=== PATIENT | male | born 1985 | race Caucasian/White ===

== ENCOUNTER 2019-11-09 19:58 | Emergency (ER) | payer BC ==
--- NOTE | 2019-11-09 20:07 | EDM.PDOC ---
ED HPI GENERAL MEDICAL PROBLEM - General Chief Complaint: Back Pain or Injury Stated Complaint: BACK PAIN Time Seen by Provider: 11/09/19 20:01 Source of Information: Reports: Patient History Limitations: Reports: No Limitations - History of Present Illness INITIAL COMMENTS - FREE TEXT/NARRATIVE: HISTORY AND PHYSICAL: History of present illness: Patient is a 34-year-old male who presents to the emergency room with complaints of right-sided flank pain that radiates into his right groin. Has had some intermittent diarrhea and nausea. He does have family members who work in the medical field and are concerned he either has a kidney stone or kidney injury. Patient denies any fever, chills, headache, change in vision, syncope or near syncope. Denies any chest pain, back pain, shortness of breath or cough. Denies any current nausea, vomiting, diarrhea, constipation or dysuria. Denies any testicular pain, swelling or erythema. Patient has been eating and drinking appropriately. Review of systems: As per history of present illness and below otherwise all systems reviewed and negative. Past medical history: As per history of present illness and as reviewed below otherwise noncontributory. Surgical history: As per history of present illness and as reviewed below otherwise noncontributory. Social history: See social history for further information Family history: As per history of present illness and as reviewed below otherwise noncontributory. Physical exam: General: Well-developed and well-nourished 34-year-old male. Alert and oriented. Nontoxic-appearing and in no acute distress. HEENT: Atraumatic, normocephalic, pupils equal and reactive bilaterally, negative for conjunctival pallor or scleral icterus, mucous membranes moist, trachea midline. No drooling or trismus noted. No meningeal signs. No hot potato voice noted. Lungs: Clear to auscultation, breath sounds equal bilaterally, chest nontender. Heart: S1S2, regular rate and rhythm without overt murmur Abdomen: Soft, nondistended, mild tenderness to the right upper quadrant. Negative for masses or hepatosplenomegaly. Right-sided costovertebral tenderness. Pelvis: Stable nontender. C-spine/Back: No pinpoint vertebral tenderness upon palpation. No crepitus, step -offs or obvious deformities. Patient is ambulatory into the emergency room without difficulty or deficit. Denies any urinary or fecal incontinence. Denies any numbness, tingling or saddle paresthesia. Skin: Intact, warm, dry. No lesions or rashes noted. Extremities: Atraumatic, moves all extremities per self without difficulty or deficits, negative for cords or calf pain. Neurovascular unremarkable. Neuro: Awake, alert, oriented. Cranial nerves II through XII unremarkable. Cerebellum unremarkable. Motor and sensory unremarkable throughout. Exam nonfocal. Notes: Lab work is unremarkable with the exception of blood and RBCs and few bacteria in the urine. CT of the abdomen and pelvis was ordered. Results are pending, Dr. Ravi will follow up on imaging and disposition accordingly. Diagnostics: CBC, CMP, UA, CT abdomen and pelvis Therapeutics: IV fluid Prescription: Cipro, flomax, tramadol Impression: Hematuria Plan: 1. Increase your oral fluids. Take the medications as directed. 2. Strain your urine. Please call tomorrow to set up a follow-up appointment with Dr. Camarillo, urology. 3. Return to the ED as needed and as discussed. Definitive disposition and diagnosis as appropriate pending reevaluation and review of above. right flank Pain Score (Numeric/FACES): 8 - Related Data Allergies Allergy/AdvReac Type Severity Reaction Status Date / Time No Known Allergies Allergy Verified 11/09/19 20:08 Home Meds: Home Meds . [No Known Home Meds] 11/09/19 [History] ED ROS GENERAL - Review of Systems Review Of Systems: Comprehensive ROS is negative, except as noted in HPI. ED EXAM,LOWER BACK PAIN/INJURY - Physical Exam Exam: See Below (See dictation) Course - Vital Signs Last Recorded V/S: Last Vital Signs Temp 97 F 11/09/19 20:08 Pulse 88 11/09/19 20:08 Resp 16 11/09/19 20:08 BP 130/75 11/09/19 20:08 Pulse Ox 98 11/09/19 20:08 - Orders/Labs/Meds Labs: Laboratory Tests 11/09/19 11/09/19 11/09/19 Range/Units 20:26 20:26 20:26 WBC 9.73 (4.0-11.0) K/uL RBC 5.13 (4.50-5.90) M/uL Hgb 15.2 (13.0-17.0) g/dL Hct 45.6 (38.0-50.0) % MCV 88.9 (80.0-98.0) fL MCH 29.6 (27.0-32.0) pg MCHC 33.3 (31.0-37.0) g/dL RDW Std Deviation 43.7 (28.0-62.0) fl RDW Coeff of Kristina 13 (11.0-15.0) % Plt Count 216 (150-400) K/uL MPV 12.50 H (7.40-12.00) fL Neut % (Auto) 63.1 (48.0-80.0) % Lymph % (Auto) 28.6 (16.0-40.0) % [place] % (Auto) 6.9 (0.0-15.0) % Eos % (Auto) 1.2 (0.0-7.0) % Baso % (Auto) 0.2 (0.0-1.5) % Neut # (Auto) 6.1 H (1.4-5.7) K/uL Lymph # (Auto) 2.8 H (0.6-2.4) K/uL [place] # (Auto) 0.7 (0.0-0.8) K/uL Eos # (Auto) 0.1 (0.0-0.7) K/uL Baso # (Auto) 0.0 (0.0-0.1) K/uL Nucleated RBC % 0.0 /100WBC Nucleated RBCs # 0 K/uL Sodium 142 (136-148) mmol/L Potassium 4.0 (3.5-5.1) mmol/L Chloride 104 (98-107) mmol/L Carbon Dioxide 28.3 (21.0-32.0) mmol/L BUN 21 H (7.0-18.0) mg/dL Creatinine 1.4 H (0.8-1.3) mg/dL Est Cr Clr Drug Dosing 83.14 mL/min Estimated GFR (MDRD) 58.7 ml/min Glucose 113 H (74-106) mg/dL Calcium 9.0 (8.5-10.1) mg/dL Total Bilirubin 0.3 (0.2-1.0) mg/dL AST 21 (15-37) IU/L ALT 58 (14-63) IU/L Alkaline Phosphatase 85 (46-116) U/L Total Protein 8.1 (6.4-8.2) g/dL Albumin 4.5 (3.4-5.0) g/dL Globulin 3.6 (2.6-4.0) g/dL Albumin/Globulin Ratio 1.2 (0.9-1.6) Urine Color YELLOW Urine Appearance CLEAR Urine pH 6.0 (5.0-8.0) Ur Specific [place] 1.025 (1.001-1.035) Urine Protein NEGATIVE (NEGATIVE) mg/dL Urine Glucose (UA) NEGATIVE (NEGATIVE) mg/dL Urine Ketones NEGATIVE (NEGATIVE) mg/dL Urine Occult Blood LARGE H (NEGATIVE) Urine Nitrite NEGATIVE (NEGATIVE) Urine Bilirubin NEGATIVE (NEGATIVE) Urine Urobilinogen 0.2 (<2.0) EU/dL Ur Leukocyte Esterase NEGATIVE (NEGATIVE) Urine RBC 6-8 (0-2/HPF) Urine WBC 0-1 (0-5/HPF) Ur Epithelial Cells RARE (NONE-FEW) Urine Bacteria FEW (NEGATIVE) Urine Mucus LIGHT (NONE-MOD) Meds: Medications Discontinued Medications Generic Name Dose Route Start Last Admin Trade Name Dewayne PRN Reason Stop Dose Admin Sodium Chloride 1,000 mls @ 999 mls/hr 11/09/19 20:16 11/09/19 20:31 Normal Saline IV 11/09/19 21:16 999 mls/hr STAT ONE Administration Ceftriaxone Sodium/Dextrose 1 50 mls @ 100 mls/hr 11/09/19 20:53 11/09/19 21: 11 gm/ Premix IV 11/09/19 21:22 100 mls/hr ONETIME ONE Administration Ketorolac Tromethamine 30 mg 11/09/19 20:53 11/09/19 21:11 Toradol IVPUSH 11/09/19 20:54 30 mg ONETIME ONE Administration Tamsulosin HCl 0.4 mg 11/09/19 21:53 Flomax PO 11/09/19 21:54 ONETIME ONE Departure - Departure Time of Disposition: 10:08 Disposition: Home, Self-Care 01 Clinical Impression: Kidney stone Hematuria Qualifiers: Hematuria type: unspecified type Qualified Code(s): R31.9 - Hematuria, unspecified - Discharge Information Instructions: Kidney Stones, [id number], Urinary Tract Infection, Adult, Easy -to-Read Referrals: [facility] [Outside] PCP,None [Primary Care Provider] - Forms: ED Department Discharge Additional Instructions: The following information is given to patients seen in the emergency department who are being discharged to home. This information is to outline your options for follow-up care. We provide all patients seen in our emergency department with a follow-up referral. The need for follow-up, as well as the timing and circumstances, are variable depending upon the specifics of your emergency department visit. If you don't have a primary care physician on staff, we will provide you with a referral. We always advise you to contact your personal physician following an emergency department visit to inform them of the circumstance of the visit and for follow-up with them and/or the need for any referrals to a consulting specialist. The emergency department will also refer you to a specialist when appropriate. This referral assures that you have the opportunity for follow-up care with a specialist. All of these measure are taken in an effort to provide you with optimal care, which includes your follow-up. Under all circumstances we always encourage you to contact your private physician who remains a resource for coordinating your care. When calling for follow-up care, please make the office aware that this follow-up is from your recent emergency room visit. If for any reason you are refused follow-up, please contact the [facility] Emergency Department at and asked to speak to the emergency department charge nurse. [facility] Primary [facility] [address] [place] [id number] [facility] Specialty Care - Urology [address] [place] [id number] 1. Increase your oral fluids. Take the medications as directed. 2. Strain your urine. Please call tomorrow to set up a follow-up appointment with Dr. Camarillo, urology. 3. Return to the ED as needed and as discussed. Sepsis Event Note - Focused Exam Date Exam was Performed: 11/10/19 Time Exam was Performed: 10:06
[2019-11-09] MEDS ORDERED: Sodium Chloride 0.9% 1,000 ML IV ONE (20:16)
[2019-11-09] MEDS ORDERED: cefTRIAXone 1 GM in Premix Bag 1 BAG IV ONE (20:53)
[2019-11-09] MEDS ORDERED: Ketorolac 30 MG/ML SDV IVPUSH ONE (20:53)
[2019-11-09 21:25] LABS: CARBON DIOXIDE,CO2 28.3 mmol/L (21.0-32.0)
[2019-11-09] MEDS ORDERED: Tamsulosin 0.4 MG Cap.ER PO ONE (21:53)
--- NOTE | 2019-11-09 22:39 | CT ---
INDICATION: Right flank pain. Diarrhea TECHNIQUE: CT abdomen and pelvis without contrast. COMPARISON: None available FINDINGS: Lower chest: Unremarkable. Liver: Unremarkable. Spleen: Unremarkable. Pancreas: Unremarkable. Gallbladder and bile ducts: Unremarkable. Adrenal glands: Unremarkable. Kidneys: No hydronephrosis or discrete, measurable urolithiasis. A small focus of mildly increased attenuation in a right renal pyramid could be physiologic or may represent minimal focal calcinosis. GI tract: Unremarkable. Appendix is normal. Vascular structures: Unremarkable. Lymph nodes: No abnormally enlarged lymph nodes. Scattered shotty subcentimeter mesenteric lymph nodes, nonspecific. Miscellaneous: No free fluid or free air. Slightly increased hazy attenuation in the left abdominal central mesenteric fat, nonspecific, which could represent minimal sclerosing mesenteritis. Pelvic Organs: A contracted bladder. Grossly unremarkable prostate. Small hydroceles. A small left scrotal harjeet. Bones: Unremarkable for age. IMPRESSION: No obstructive uropathy or discrete, measurable urolithiasis. No evidence of appendicitis, diverticulitis or bowel obstruction. Slightly increased hazy attenuation in the central mesenteric fat, nonspecific, which could represent minimal sclerosing mesenteritis. Dictated by Olu Tapia MD @ 11/09/2019 10:33:53 PM Please note that all CT scans at this facility use dose modulation, iterative reconstruction, and/or weight-based dosing when appropriate to reduce radiation dose to as low as reasonably achievable. Dictated by: Olu Tapia MD @ 11/09/2019 22:37:02 (Electronically Signed)
== END 2019-11-09 23:04 | disposition home or self-care (01) ==
LOC: MW.ED 19:58
DX: N20.0 Calculus of kidney (principal); R31.9 Hematuria, unspecified
CPT/HCPCS: 74176; 80053; 81001; 85025; 96361; 96365; 96375; 99284; J0696; J1885; J7030